=== PATIENT | male | born 1955 | race Caucasian/White ===

== ENCOUNTER → 2018-06-03 11:41 | Outpatient (CLI) | payer OTHER, SELFPAY | PROVIDERS: PCP Family Medicine; Visit Provider Family Medicine | DX: E03.9 Hypothyroidism, unspecified (principal); Z86.39 Personal history of other endocrine, nutritional and metabolic disease | CPT/HCPCS: 36415; 84443 ==

== ENCOUNTER → 2018-07-14 14:18 | Outpatient (CLI) | payer OTHER, SELFPAY ==
--- NOTE | 2018-07-14 14:20 | DI.RAD.S_ITS ---
PROCEDURE: XR WRIST LT MIN 3V INDICATIONS: Left wrist injury TECHNIQUE: 4 views of the wrist were acquired. COMPARISON: [facility], CT, UPPER EXTREM W/O CONTRAST, 07/20/2007, 17:32. FINDINGS: Bones: An old nonunited fracture of the scaphoid is noted. There is moderate to severe radiocarpal joint degeneration. No suspicious bony lesions. Scaphoid view: There is an old nonunited fracture involving the waist of the scaphoid. Increased density in the proximal fracture fragment is noted, consistent with avascular necrosis. The appearance was present on prior CT dated 07/20/2007. Soft tissues: No suspicious soft tissue calcifications. IMPRESSION: 1. Old nonunited fracture of the scaphoid. 2. In the setting of acute trauma, superimposed acute fracture is difficult to exclude. If clinical symptoms persist or clinical suspicion for acute pathology is high, CT or MRI is suggested for further evaluation. Dictated by: Tabatha Domingo M.D. on 07/14/2018 at 17:35 Approved by: Tabatha Domingo M.D. on 07/14/2018 at 17:42
== END ==
PROVIDERS: PCP Family Medicine; Visit Provider Registered Nurse
DX: M25.532 Pain in left wrist (principal); M19.032 Primary osteoarthritis, left wrist; S62.002S Unspecified fracture of navicular [scaphoid] bone of left wrist, sequela
CPT/HCPCS: 73110

== ENCOUNTER → 2018-08-24 10:06 | Outpatient (CLI) | payer OTHER, SELFPAY ==
--- NOTE | 2018-08-24 10:08 | DI.RAD.S_ITS ---
PROCEDURE: XR ELBOW LT MIN 3V INDICATIONS: l wrist pain TECHNIQUE: 3 views of the elbow were acquired. COMPARISON: None. FINDINGS: Bones: No fractures or dislocations. No suspicious bony lesions. Soft tissues: No elbow joint effusion. No suspicious soft tissue calcifications. IMPRESSION: No gross acute elbow fracture or dislocation. No joint effusion. Dictated by: Troy Faulkner M.D. on 08/24/2018 at 10:28 Approved by: Troy Faulkner M.D. on 08/24/2018 at 10:33
--- NOTE | 2018-08-24 10:08 | DI.RAD.S_ITS ---
PROCEDURE: XR WRIST LT MIN 3V INDICATIONS: l wrist pain TECHNIQUE: 3 views of the wrist were acquired. COMPARISON: [facility], CR, XR WRIST LT MIN 3V, 07/14/2018, 14:17. FINDINGS: Bones: Intra-articular fracture of distal radius is seen with minimal displacement at fracture site. There is also an old fracture involving scaphoid with well-corticated margin. Subtle increased sclerotic changes in the proximal scaphoid is seen, concerning for avascular necrosis. Osteoarthritic changes along radial aspect of left wrist is noted. No suspicious bony lesions. Soft tissues: No suspicious soft tissue calcifications. IMPRESSION: 1. Subacute appearing intra-articular fracture of distal radius with minimal displacement at fracture site. 2. Chronic appearing scaphoid waist fracture with signs of nonunion and concern for early avascular necrosis involving proximal portion of scaphoid fragment. Dictated by: rToy Faulkner M.D. on 08/24/2018 at 10:34 Approved by: Troy Faulkner M.D. on 08/24/2018 at 10:35
== END ==
PROVIDERS: PCP Family Medicine; Visit Provider Physician Assistant
DX: S52.572A Other intraarticular fracture of lower end of left radius, initial encounter for closed fracture (principal); M25.532 Pain in left wrist; S62.002K Unspecified fracture of navicular [scaphoid] bone of left wrist, subsequent encounter for fracture with nonunion; M19.032 Primary osteoarthritis, left wrist; X58.XXXA Exposure to other specified factors, initial encounter
CPT/HCPCS: 73080; 73110

== ENCOUNTER → 2019-10-13 08:04 | Outpatient (CLI) | payer OTHER, SELFPAY ==
[2019-10-13 09:18] LABS: Hemoglobin A1C% w Est Avg Glu 5.3 % (4.0-6.0)
[2019-10-13 09:20] LABS: Alanine Aminotransferase 29 IU/L (<50); Albumin 4.7 g/dL (3.5-5.0); Albumin Globulin Ratio 1.6 (1.0-2.8); Alkaline Phosphatase 41 U/L (38-126); Aspartate Aminotransferase 37 IU/L (17-59); BUN Creatinine Ratio 27.2 (6-22); Bilirubin Total 0.7 mg/dL (0.2-1.3); Blood Urea Nitrogen 28 mg/dL (9-20); Calcium 9.4 mg/dL (8.4-10.2); Carbon Dioxide 29 mmol/L (22-32); Chloride 103 mmol/L (98-107); Cholesterol 101 mg/dL (140-199); Estimated Glomerular Filt Rate > 60.0 mL/min (>60); Globulin 2.9 g/dL (1.7-4.1); Glucose 93 mg/dL (80-110); HDL Cholesterol 58 mg/dL (40-60); HEMOLYSIS < 15 (0-50); LDL Cholesterol Calculated 39 mg/dL (<100); Potassium 4.4 mmol/L (3.4-5.1); Sodium 139 mmol/L (137-145); Total Protein 7.6 g/dL (6.3-8.2); Triglycerides 21 mg/dL (35-150)
[2019-10-13 09:26] LABS: Add Manual Diff / Slide Review NO; Basophils Absolute Auto 0 /uL (0-100); Basophils Percent Auto 0.3 % (0-2); Eosinophils Absolute Auto 200 /uL (0-450); Hematocrit 45.2 % (41-53); Hemoglobin 15.7 g/dL (13.5-17.5); Lymphocytes Absolute Auto 1300 /uL (1100-4500); Mean Corpuscular HGB Conc 34.7 % (30-36); Mean Corpuscular Hemoglobin 31.1 PG (26-34); Mean Corpuscular Volume 89.6 fL (80-100); Monocytes Absolute Auto 300 /uL (0-900); Monocytes Percent Auto 7.6 % (3-14); Neutrophils Absolute Auto 2400 /uL (1500-7000); Neutrophils Percent Auto 57.1 % (50-75); Platelet Count 209 X10^3/uL (150-400); Red Blood Cell Count 5.04 X10^6/uL (4.5-5.9); Red Cell Distribution Width 13.2 % (11.6-14.8); White Blood Cell Count 4.1 X10^3/uL (4.5-11.0)
[2019-10-13 10:11] LABS: TSH w/ Reflex to FT4 4.52 uIU/mL (0.47-4.68)
== END ==
PROVIDERS: PCP Family Medicine; Referring Provider Family Medicine; Visit Provider Family Medicine
DX: E03.9 Hypothyroidism, unspecified (principal); I10 Essential (primary) hypertension; N40.0 Benign prostatic hyperplasia without lower urinary tract symptoms
CPT/HCPCS: 36415; 80053; 80061; 83036; 84443; 85025

== ENCOUNTER → 2020-06-02 10:24 | Outpatient (CLI) | payer OTHER, SELFPAY ==
[2020-06-02 11:14] LABS: Hemoglobin A1C% w Est Avg Glu 5.1 % (4.0-6.0)
[2020-06-02 11:15] LABS: Alanine Aminotransferase 27 IU/L (<50); Albumin 4.5 g/dL (3.5-5.0); Albumin Globulin Ratio 1.7 (1.0-2.8); Alkaline Phosphatase 41 U/L (38-126); Aspartate Aminotransferase 37 IU/L (17-59); BUN Creatinine Ratio 22.8 (6-22); Bilirubin Total 0.6 mg/dL (0.2-1.3); Blood Urea Nitrogen 26 mg/dL (9-20); Calcium 9.6 mg/dL (8.4-10.2); Carbon Dioxide 32 mmol/L (22-32); Chloride 104 mmol/L (98-107); Estimated Glomerular Filt Rate > 60.0 mL/min (>60); Globulin 2.6 g/dL (1.7-4.1); Glucose 92 mg/dL (80-110); HEMOLYSIS < 15 (0-50); Potassium 4.4 mmol/L (3.4-5.1); Sodium 137 mmol/L (137-145); Total Protein 7.1 g/dL (6.3-8.2)
[2020-06-02 11:33] LABS: Creatinine Urine Random 56.2 mg/dL
[2020-06-02 11:43] LABS: Prostate Specific Antigen Scrn 5.39 ng/mL (0.1-4.0)
[2020-06-02 11:45] LABS: Microalbumin Urine Random < 0.6 mg/dL (0-1.6)
== END ==
PROVIDERS: PCP Family Medicine; Referring Provider Family Medicine; Visit Provider Family Medicine
DX: I10 Essential (primary) hypertension (principal); N40.0 Benign prostatic hyperplasia without lower urinary tract symptoms
CPT/HCPCS: 36415; 80053; 82043; 82570; 83036; G0103

== ENCOUNTER → 2021-08-13 07:14 | Outpatient (CLI) | payer MEDICARE, OTHER, SELFPAY ==
[2021-08-13 09:01] LABS: Add Manual Diff / Slide Review NO; Basophils Absolute Auto 0 /uL (0-100); Basophils Percent Auto 0.4 % (0-2); Eosinophils Absolute Auto 400 /uL (0-450); Eosinophils Percent Auto 7.1 % (2-4); Hematocrit 42.8 % (41-53); Hemoglobin 14.8 g/dL (13.5-17.5); Lymphocytes Absolute Auto 1100 /uL (1100-4500); Mean Corpuscular HGB Conc 34.7 % (30-36); Mean Corpuscular Hemoglobin 30.5 PG (26-34); Mean Corpuscular Volume 88.1 fL (80-100); Monocytes Absolute Auto 500 /uL (0-900); Monocytes Percent Auto 9.6 % (3-14); Neutrophils Absolute Auto 3200 /uL (1500-7000); Neutrophils Percent Auto 61.9 % (50-75); Platelet Count 248 X10^3/uL (150-400); Red Blood Cell Count 4.86 X10^6/uL (4.5-5.9); White Blood Cell Count 5.2 X10^3/uL (4.5-11.0)
[2021-08-13 09:50] LABS: Alanine Aminotransferase 18 IU/L (<50); Albumin 4.2 g/dL (3.5-5.0); Albumin Globulin Ratio 1.6 (1.0-2.8); Alkaline Phosphatase 42 U/L (38-126); Aspartate Aminotransferase 30 IU/L (17-59); BUN Creatinine Ratio 23.1 (6-22); Bilirubin Total 0.4 mg/dL (0.2-1.3); Blood Urea Nitrogen 25 mg/dL (9-20); Calcium 9.2 mg/dL (8.4-10.2); Carbon Dioxide 30 mmol/L (22-32); Chloride 106 mmol/L (98-107); Cholesterol 91 mg/dL (140-199); Estimated Glomerular Filt Rate > 60.0 mL/min (>60); Globulin 2.6 g/dL (1.7-4.1); Glucose 82 mg/dL (80-110); HDL Cholesterol 43 mg/dL (40-60); HEMOLYSIS < 15 (0-50); LDL Cholesterol Calculated 41 mg/dL (<100); Potassium 4.6 mmol/L (3.4-5.1); Sodium 141 mmol/L (137-145); Total Protein 6.8 g/dL (6.3-8.2); Triglycerides 34 mg/dL (35-150)
[2021-08-13 10:12] LABS: Prostate Specific Antigen Scrn 6.64 ng/mL (0.1-4.0)
== END ==
PROVIDERS: PCP Family Medicine; Referring Provider Family Medicine; Visit Provider Family Medicine
DX: Z00.00 Encounter for general adult medical examination without abnormal findings (principal); Z12.5 Encounter for screening for malignant neoplasm of prostate
CPT/HCPCS: 36415; 80053; 80061; 85025; G0103

== ENCOUNTER → 2022-06-06 12:41 | Outpatient (CLI) | payer MEDICARE, OTHER, SELFPAY ==
[2022-06-06 15:02] LABS: Prostate Specific Antigen 6.14 ng/mL (0.10-4.00)
[2022-06-06 15:03] LABS: Free T4, Direct Thyroxine 1.15 ng/dL (0.78-2.19)
[2022-06-06 15:16] LABS: Thyroid Stimulating Hormone 3.33 uIU/mL (0.47-4.68)
== END ==
PROVIDERS: PCP Family Medicine; Referring Provider Family Medicine; Visit Provider Family Medicine
DX: Z12.5 Encounter for screening for malignant neoplasm of prostate (principal); Z13.29 Encounter for screening for other suspected endocrine disorder; E03.9 Hypothyroidism, unspecified
CPT/HCPCS: 36415; 84153; 84439; 84443; G0103

== ENCOUNTER → 2022-06-26 11:58 | Outpatient (CLI) | payer MEDICARE, OTHER, SELFPAY ==
--- NOTE | 2022-06-26 12:25 | DI.MRI.S_ITS ---
PROCEDURE: MR PELIS WO/W CON INDICATIONS: Abnormal Prostate TECHNIQUE: Coronal HASTE, axial T1 FSE with fat saturation, 3-plane nonbreath-hold T2 FSE. After the administration of contrast, dynamic axial, delayed axial and coronal VIBE or 2-D FLASH with fat saturation through the pelvis. Optional diffusion weighted imaging and ADC may be performed. COMPARISON: None. FINDINGS: Image quality: Diffusion weighted and dynamic contrast enhanced images are diagnostic. Prostate: Gland size is 3.9 x 5.0 x 4.9 cm; ellipsoid gland volume is 50 mL. Lesion 1: Location: Anterior left transition zone, base (series 4, image 12). Size: 1.0 x 1.8 cm. T2W: Partially encapsulated nodule. DWI: Markedly hyperintense. ADC: Markedly hypointense. Enhancement: Positive. Extraprostatic Extension: No. PI-RADS score: 3. Genitourinary system: Trabeculated bladder wall, presumably due to chronic outlet obstruction. Small hydroceles. Bowel and peritoneum: Diverticulosis without evidence of diverticulitis. Nodes and vessels: Mildly suspicious left external iliac chain node measuring 9 mm short axis (21/77). Soft tissues: No inguinal hernias. Bones: Marrow demonstrates normal overall signal, without lesions to suggest metastases. Anterior to the pubic symphysis, there is a 1.7 x 1.8 cm region of rim enhancement (21/140). IMPRESSION: 1. PI-RADS 3 lesion in the anterior left transition zone of the base. Mildly suspicious left external iliac chain node measuring 9 mm short axis. No evidence of extracapsular extension or osseous metastatic disease. 2. Anterior to the pubic symphysis, there is a 1.7 x 1.8 cm region of rim enhancement (21/140). Findings are nonspecific, but given location and appearance, degenerative changes from the pubic symphysis is likely, less likely abscess or soft tissue mass. Attention on follow-up. 3. Small hydroceles. Dictated by: Donovan Carrillo M.D. on 06/26/2022 at 14:15 Approved by: Donovan Carrillo M.D. on 06/26/2022 at 14:32
== END ==
PROVIDERS: PCP Family Medicine; Referring Provider Specialist; Visit Provider Specialist
DX: N40.1 Benign prostatic hyperplasia with lower urinary tract symptoms (principal); N43.3 Hydrocele, unspecified; N42.9 Disorder of prostate, unspecified; N32.89 Other specified disorders of bladder; R39.89 Other symptoms and signs involving the genitourinary system; R97.20 Elevated prostate specific antigen [PSA]; K57.90 Diverticulosis of intestine, part unspecified, without perforation or abscess without bleeding
CPT/HCPCS: 72197; A9579

== ENCOUNTER → 2022-09-10 11:49 | Outpatient (CLI) | payer MEDICARE, OTHER, SELFPAY ==
[2022-09-12 09:48] LABS: PSA Free % 16.9 % (.); PSA, Total 5.2 ng/mL (0.0-4.0)
== END ==
PROVIDERS: PCP Family Medicine; Referring Provider Specialist; Visit Provider Specialist
DX: R97.20 Elevated prostate specific antigen [PSA] (principal)
CPT/HCPCS: 36415; 84153; 84154

== ENCOUNTER → 2023-08-05 09:26 | Outpatient (CLI) | payer MEDICARE, OTHER, SELFPAY ==
[2023-08-05 10:52] LABS: Alanine Aminotransferase 31 IU/L (<50); Albumin 4.1 g/dL (3.5-5.0); Albumin Globulin Ratio 1.5 (1.0-2.8); Alkaline Phosphatase 45 U/L (38-126); Aspartate Aminotransferase 40 IU/L (17-59); BUN Creatinine Ratio 19.5 (6-22); Bilirubin Total 0.8 mg/dL (0.2-1.3); Blood Urea Nitrogen 24 mg/dL (9-20); Calcium 9.1 mg/dL (8.4-10.2); Carbon Dioxide 27 mmol/L (22-32); Chloride 108 mmol/L (98-107); Cholesterol 101 mg/dL (140-199); Estimated Glomerular Filt Rate > 60 mL/min (>60); Globulin 2.8 g/dL (1.7-4.1); Glucose 90 mg/dL (80-110); HDL Cholesterol 65 mg/dL (40-60); HEMOLYSIS 40 (0-50); LDL Cholesterol Calculated 31 mg/dL (<100); Potassium 4.7 mmol/L (3.4-5.1); Sodium 137 mmol/L (137-145); Total Protein 6.9 g/dL (6.3-8.2); Triglycerides 24 mg/dL (35-150)
[2023-08-05 11:27] LABS: TSH w/ Reflex to FT4 3.16 uIU/mL (0.47-4.68)
[2023-08-07 14:43] LABS: PSA Free % 18.1 % (.); PSA, Total 6.4 ng/mL (0.0-4.0)
== END ==
LOC: LAB 09:29
PROVIDERS: PCP Family Medicine; Referring Provider Family Medicine; Visit Provider Family Medicine
DX: E03.9 Hypothyroidism, unspecified (principal); R97.20 Elevated prostate specific antigen [PSA]; I10 Essential (primary) hypertension
CPT/HCPCS: 36415; 80053; 80061; 84153; 84154; 84443

== ENCOUNTER → 2023-10-23 15:46 | Outpatient (CLI) | payer MEDICARE, OTHER, SELFPAY ==
--- NOTE | 2023-10-23 | DI.MRI.S_ITS ---
PROCEDURE: MR PELVIC PROSTATE PROTOCOL INDICATIONS: High prostate specific antigen (PSA) TECHNIQUE: Coronal HASTE, axial T1 FSE with fat saturation, 3-plane nonbreath-hold T2 FSE. After the administration of contrast, dynamic axial, delayed axial and coronal VIBE or 2-D FLASH with fat saturation through the pelvis. Diffusion weighted imaging and ADC was performed. COMPARISON: [facility], MR, MR PELVIS WO/W CON, 06/26/2022, 12:09. FINDINGS: Image quality: Diffusion weighted and dynamic contrast enhanced images are diagnostic. Prostate: Gland size is 3.8 x 5.0 x 4.5 cm; ellipsoid gland volume is 44.5 mL. There is nodular hypertrophy including the median lobe as well as a few extruded BPH nodules left inferior apex and left posterior base. Hypertrophy of the median lobe indenting into bladder. Lesion 1: Location: Left mid transition zone near the base, on axial series five, image 11 and coronal series six, image 12. This lesion has increased in transverse diameter compared to prior.. Size: About 1.6 x 1.5 cm, previously 1.6 x 0.8 cm. T2W signal: Moderately hypointense DWI signal: Moderately hyperintense ADC signal: Mildly intense Enhancement: No Extracapsular extension: No. No neurovascular involvement. PI-RADS score: Three Lesion 2: A small encapsulated nodule demonstrates moderately increased diffusion and hypointense ADC signal, present previously in the right posterior transition zone from mid gland to apex, /16. No size change. Prominent enhancement. No extracapsular extension. PI-RADS score: Three Genitourinary system: Urinary bladder wall is smoothly thickened. Distal ureters are non distended. Small bilateral septated hydroceles. Bowel and peritoneum: No pathologic free pelvic fluid. Extensive sigmoid colon diverticulosis. Inferior colon and small bowel loops are normal in caliber. Nodes and vessels: Two slightly prominent left external iliac chain lymph nodes, measuring 8 mm and 9 mm. Fatty david are maintained. Vasculature is patent. Soft tissues: No inguinal hernias. Bones: Marrow demonstrates normal overall signal, without lesions to suggest metastases. Decreased size and enhancement of the ring-like lesion in soft tissues anterior to the right pubic bone at the symphysis. IMPRESSION: Mild enlargement of left base transition zone PI-RADS three lesion. Stable size of a probably atypical BPH nodule (PI-RADS three) demonstrating restricted diffusion and enhancement in the right mid/apical transition zone. Stable size but increased number of left external iliac chain borderline lymph nodes. Dictated by: Josselin Post M.D. on 10/23/2023 at 23:18 Approved by: Josselin Post M.D. on 10/23/2023 at 23:49
== END ==
PROVIDERS: PCP Family Medicine; Referring Provider Specialist; Visit Provider Specialist
DX: N40.1 Benign prostatic hyperplasia with lower urinary tract symptoms (principal); R97.20 Elevated prostate specific antigen [PSA]; N42.9 Disorder of prostate, unspecified
CPT/HCPCS: 72197; A9579

== ENCOUNTER → 2023-11-05 14:31 | Outpatient (CLI) | payer MEDICARE, OTHER, SELFPAY ==
[2023-11-08 08:12] LABS: PSA Free % 22.4 % (.); PSA, Total 3.7 ng/mL (0.0-4.0)
== END ==
PROVIDERS: PCP Family Medicine; Referring Provider Specialist; Visit Provider Specialist
DX: N40.1 Benign prostatic hyperplasia with lower urinary tract symptoms (principal); R97.20 Elevated prostate specific antigen [PSA]; R33.9 Retention of urine, unspecified
CPT/HCPCS: 36415; 81002; 84153; 84154; 99214

== ENCOUNTER → 2023-11-28 14:01 | Outpatient (CLI) | payer MEDICARE, OTHER, SELFPAY | PROVIDERS: PCP Family Medicine; Referring Provider Specialist; Visit Provider Specialist | DX: R97.20 Elevated prostate specific antigen [PSA] (principal) | CPT/HCPCS: 36415; 84153; 84154 ==

== ENCOUNTER 2023-12-09 10:16 | Day surgery (SDC) | payer MEDICARE, OTHER, SELFPAY ==
[2023-12-09] MEDS: LACTATED RINGERS 1,000 ML 42 ML IV (10:37)
[2023-12-09 10:38] VITALS: BP 132/81; PULSE 67; RESP 16; TEMP 36.7; O2SAT 99
--- NOTE | 2023-12-09 11:10 | PM.HP.1 ---
History of Present Illness History of Present Illness Date Patient Seen: 12/09/23 Time Patient Seen: 11:10 Chief complaint: Colonoscopy Narrative: 68-year-old man here for screening colonoscopy. Last colonoscopy 11 years ago normal. No family history of colon cancer. No abdominal concerns today. [facility] Medical History Erectile dysfunction Insomnia Incomplete bladder emptying Abnormal prostate exam Elevated PSA BPH loc w urin obs/LUTS Male circumcision History of high blood pressure Skin cancer Well adult Plantar warts Fractures Chronic back pain (~1993) Ankle pain (~2017) Tinnitus (~1993) Recurrent sinusitis Hearing loss (~1993) Benign prostatic hyperplasia (~2017) Hepatitis C (~1993) Hypothyroidism (~2017) Hyperthyroidism (~2017) Surgical History H/O vasectomy History of liver biopsy H/O hernia repair H/O nasal septoplasty Anesthesia Strabismus (~04/2011) Status post LASIK surgery (~06/2007) Cataracts, bilateral (~2017) Family History Father No problems noted. Mother Heart disease Social History marital status: number of children: 3 household members: spouse lives independently: Yes education level: master's degree occupational status: other Smoking Status: Former smoker Tobacco: How many years used: 6 second hand exposure: No alcohol intake: current substance use type: does not use Type(s) of exercise: walking frequency: 3-4 times per week Meds Home Medications and Allergies Home Medications Medication Instructions Recorded Confirmed Type tamsulosin 0.4 mg capsule See Rx Instructions .Route 06/16/23 12/09/23 Rx .COMPLEX #90 caps tadalafil 5 mg tablet (Cialis) 5 mg PO DAILY #90 tabs 08/05/23 12/09/23 Rx trazodone 50 mg tablet 50 mg PO BEDTIME PRN sleep #30 tabs 11/04/23 12/09/23 Rx Allergies Allergy/AdvReac Type Severity Reaction Status Date / Time Penicillins [PENICILLINS] Allergy Severe Hives Verified 12/09/23 10:50 Exam Vital Signs (past 8 hours): - 07/23/24 10:38 Temperature 98.1 F Pulse Rate 67 Respiratory Rate 16 Blood Pressure 132/81 Pulse Oximetry 99 Oxygen Delivery Method Room Air Oxygen Delivery Method Room Air Narrative Exam Narrative: General adult man alert oriented no acute distress Chest nonlabored respiration Extremities warm well perfused Assessment & Plan Assessment & Plan narrative: The patient requires colorectal screening and colonoscopy is recommended. Technical details were discussed. Risks, benefits, alternatives explained. Risks including but not limited to myocardial infarction, aspiration, bleeding, pain, missed lesion, incomplete examination, need for further radiographic studies, intestinal injury, and need for major abdominal surgery were discussed. All questions were answered to their satisfaction, and they are in agreement with this plan. Time-Based Coding :: [TOTAL MINUTES] spent with patient and on the chart (including review of chart, obtaining history, exam, reviewing outside data, placing orders, documenting exam and treatment plan, and counseling patient) on [DATE].
[2023-12-09 11:40] VITALS: BP 105/70; PULSE 65; RESP 12; TEMP 36.9; O2SAT 96
[2023-12-09 11:45] VITALS: BP 108/63; PULSE 62; RESP 19; TEMP 36.9; O2SAT 96
--- NOTE | 2023-12-09 11:45 | P.OP.COLON_ITS ---
Operative Date/Time/Diagnoses Date of procedure: 12/09/23 Time of procedure: 11:45 Pre-op diagnosis: Colorectal screening Procedure & Clinicians Study performed: Screening colonoscopy Same procedure as scheduled: Yes Indications: Colorectal screening Surgeon: Hermilo Lujan Procedure Notes Procedure in detail: The history and physical was performed/updated and the patient is ASA class is 2. The procedure was discussed in detail with the patient. Potential risks co mplications including infection, bleeding, missed diagnosis, perforation, need for surgery, and were explained. Their questions were answered and informed consent was obtained. Patient was brought to the procedure room and placed standard monitoring equipment. The patient's vital signs were monitored continuously throughout the entire procedure. Prior to starting time-out was performed. The patient was placed in the left lateral recumbent position. Procedural sedation was administered by anesthesia. Examination began with a thorough inspection of the perianal area there was no evidence of fissures, fistulae, external hemorrhoids or cutaneous malignancy. The colonoscopy scope was then placed into the anal canal and was advanced to the cecum, which was identified by the ileocecal valve, the appendiceal orifice and the confluence of the taenia. The scope was then slowly withdrawn examining colon thoroughly in all directions, irrigating it of any residual stool. The scope was retroflexed within the rectum The patient tolerated the procedure well. They will be discharged once criteria are met. The prep was of good/excellent quality. The withdrawl time was 7 minutes. FINDINGS * Unremarkable colonoscopy. Normal healthy colonic mucosa without mass or polyps. Specimen(s): none sent Impression: Normal colonoscopy Post-procedure Recommendations: Colonoscopy in 10 years Disposition: same day surgery
[2023-12-09 11:49] VITALS: BP 104/68; PULSE 53; RESP 16; TEMP 36.9; O2SAT 97
[2023-12-09 11:54] VITALS: BP 110/69; PULSE 59; RESP 14; TEMP 36.9; O2SAT 97
== END 2023-12-09 12:06 | disposition home or self-care (01) ==
PROVIDERS: PCP Family Medicine; Referring Provider Surgery; Visit Provider Surgery
PROC: 0DJD8ZZ Inspection of Lower Intestinal Tract, Via Natural or Artificial Opening Endoscopic (ICD-10-PCS; CPT 45378; principal; 2023-12-09 11:15)
DX: Z12.11 Encounter for screening for malignant neoplasm of colon (principal)
CPT/HCPCS: G0121; J2704

== ENCOUNTER → 2024-02-18 14:04 | Outpatient (CLI) | payer MEDICARE, OTHER, SELFPAY | PROVIDERS: PCP Family Medicine; Visit Provider Urology | DX: N40.1 Benign prostatic hyperplasia with lower urinary tract symptoms (principal); R33.9 Retention of urine, unspecified | CPT/HCPCS: 87086 ==

== ENCOUNTER 2024-03-01 08:57 | Day surgery (SDC) | payer MEDICARE, OTHER, SELFPAY ==
[2024-02-25 11:53] VITALS: BMI 24.1
[2024-03-01] VITALS (13 sets, daily range): BP systolic 116–142; BP diastolic 57–83; PULSE 46–82; RESP 8–16; TEMP 35.7–36.5; O2SAT 96–100; BMI 23.2
--- NOTE | 2024-03-01 | PATH_ITS ---
[facility] Accession Number: [id number] No. of containers..01 Tissue . 01 Material submitted: . prostate - PROSTATE CHIPS . 01 Diagnosis: PROSTATE CHIPS (4 GRAMS), TRANURETHRAL RESECTION: Benign prostatic hyperplasia. MRV 03/04/2024 1631 Local . 01 Electronically signed: . Sara Powers MD, Pathologist NPI- [id number] . 01 Gross description: . Received in formalin with two patient identifiers and prostate chips, are multiple sweeney, rubbery soft tissue fragments admixed with hemorrhagic material weighing 4 grams and aggregating to 4.2 x 3.1 x 1.2 cm. No lesions are identified, and the specimen is submitted entirely in A1-A4. ([id number]) /MRV 03/03/2024 1715 Local . 01 Pathologist provided ICD-10: N40.0 . 01 CPT . 798068 Specimen Comment: A courtesy copy of this report has been sent to [facility] Pathology Performed at: [address] [address], [place], [place] [id number] MD Miky Rajan MD Phone: [phone]
[2024-03-01] MEDS: ACETAMINOPHEN 325 MG TABLET 975 MG PO (09:20)
[2024-03-01] MEDS: LACTATED RINGERS 1,000 ML 42 ML IV (09:21)
--- NOTE | 2024-03-01 09:26 | SUR.OPER ---
Lithotomy on padded OR bed, head on pillow, arms secured on padded arm boards at <90 degrees abduction. Legs secured in padded yellow fins stirrups.
--- NOTE | 2024-03-01 09:45 | PM.PREOP ---
Pre-operative Note COVID-19 COVID-19 status: Not tested Interval Note History & Physical reviewed/Exam performed by Physician: Yes Changes to H&P: No
--- NOTE | 2024-03-01 11:33 | PM.OP.1 ---
Procedure & Clinicians Procedure: Cystoscopy Aquablation Same procedure as scheduled: Yes Indications: 69 y/o M w/ BPH and bothersome LUTS who was unhappy on Tamsulosin 0.4mg daily and strongly desired surgical intervention via an Aquablation procedure. Surgeon: Wesly Zavaleta Click Yes if Unassisted: Yes Anesthesia Type: General Operative Notes Findings: Trilobar hypertrophy, large intravesical median lobe Closure Type: not applicable Specimen(s): other (Prostate chips) Applied: catheter Estimated Blood Loss (mL): 50 Blood products transfused: none Procedure in detail: After informed consent was obtained, the patient was identified brought to the operating room where he was placed in his supine position on the table.? Once there anesthesia was induced and maintained.? Ensuring an adequate level of anesthesia the patient was transitioned to the lithotomy position where after time-out he was prepped.? After prepping, ensuring an adequate level of anesthesia, administration IV antibiotics and time-out 60 cc of ultrasound gel was instilled within the rectum and the ultrasound probe which had been attached to the TRUS stepper which was attached to the TRUS stepper articulating arm which was secured to the bed was advanced into the rectum under direct vision via the ultrasound.? The ultrasound probe was then aligned and confirmation made that the prostate was centered and aligned in both the sagittal and transverse views.? The bladder neck, verumontanum, central and transitional zones were identified.? With the ultrasound in place and adjusted the patient was then draped in a sterile fashion. With the patient draped the 24 [place] aqua beam handpiece was then inserted through the urethra and advanced into the bladder.? Cystoscopy was then performed and no concerning bladder mass or lesions were noted.? Bilateral ureteral orifices were noted to be orthotopic in nature.? As the cystoscope was advanced the level of the sphincter, verumontanum, bladder neck were all identified via ultrasound and under direct vision.? The aqua beam hand place was then secured to the handpiece articulating arm which had been secured to the bed.? The Aquablation handpiece and TRUS probe were confirmed to be parallel and colinear.? Confirmation was then made that the aqua beam handpiece and nozzle was centered and anterior to the bladder neck. ?The cystoscope was then retracted under direct vision in the sphincter and verumontanum were identified.? The tip of the cystoscope was then placed proximal to the external sphincter.? Compression was applied with the TRUS probe to the prostate.? The alignment of the TRUS probe and aqua beam handpiece was once again confirmed.? Horizontal alignment of the handpiece water jet was then performed.? With these adjustments made, the treatment zones were then planned using real-time ultrasound.? In the largest transverse view of the prostate the depth and radial angles were determined and set again in the transverse view of the prostate.? In the longitudinal and sagittal view the Aquablation nozzle was identified and its position registered with the software and robot.? The treatment contours were then determined and adjusted to reflect the intended margins of resection.? Following our plan confirmation, the Aquablation resection treatment was started.? A 2nd pass was then completed in similar fashion after the 1st pass had been completed.? At this point, the Aqua hand piece was removed from the urethra. The 26Fr resectoscope was then inserted into the urethra and cystoscopy was repeated.? The Elik oliving machine operator was utilized to evacuate the blood clots from the bladder.? The bladder neck was then resected using the bipolar Gyrus loop.? Bilateral ureteral orifices were again identified and noted to be intact at case end.? Hemostasis was obtained and noted to be excellent at case end.? The resectoscope was then removed and a 24Fr Devi 3-way hematuria catheter was inserted through the urethra and into the bladder.? 45cc of sterile water was utilized for balloon insufflation.? Efflux was noted to be clear at case end.? Anesthesia was reversed, he was extubated in the OR and transferred to the PACU in stable condition for recovery. Complications: none Post-operative Condition: stable Disposition: PACU Plan for aftercare: Will re-evaluate in a few hours and consider discharging home with catheter in place versus admitting overnight for observation and continuous bladder irrigation.
--- NOTE | 2024-03-01 14:36 | PC.NURSE ---
Addendum entered by Dawna Mcgowan R.N. 03/02/24 11:34: Patient just voided 225cc of dark brown/red urine, and had a pvr of 331. He is trying to void again now. First two pvr was 0. Original Note: Patients urine in lebron tube is at a grade 2, Color in tube is a light pink. Patient is tolerating his 3-way lebron and NS irrigation. He was up to the [facility] and tried to have a bm, jelly from his rectum and from ultrasound procedure before surgery was present in the toilet but no stool. He ate some lunch, and his throat was sore from the ET tube. He is resting comfortably.
[2024-03-02] MEDS: CALCIUM CARBONATE 500 MG TAB PO (00:47)
--- NOTE | 2024-03-02 07:08 | PC.NURSE ---
Continuous bladder irrigation w/o issues overnight, denies pain, grade I-II (few blood clots noted). Clamped CBI @ 0630, placed catheter plug in port. Ambulated in hallway.
[2024-03-02 08:00] VITALS: BP 130/73; PULSE 51; RESP 16; TEMP 36.3; O2SAT 98
--- NOTE | 2024-03-02 08:03 | PM.PN.1 ---
Subjective Subjective Date Patient Seen: 03/02/24 Time Patient Seen: 07:45 Interval history: 69 y/o M w/ BPH and bothersome LUTS who strongly desired surgical management via an Aquablation procedure.? He is now POD 1 and tolerated the aforementioned procedure without any complications and had an uneventful night in the hospital.? He was tolerating a regular diet without nausea or vomiting and his pain remained well controlled.? His CBI was discontinued this AM and he was able to ambulate 3-4 laps in the hallways without issues.? He is eager to have his catheter removed. Exam Vital Signs (past 8 hours): Oxygen Delivery Method Room Air Oxygen Flow Rate 0 Narrative Exam Narrative: GEN:? Alert and oriented X3.? No acute distress.? Well-nourished. EYES:? PERRLA, EOMI. HENT:? Moist mucus membranes, no scleral icterus, normal neck ROM. RESP:? Unlabored breathing, equal rise and fall of chest bilaterally, no cyanosis appreciated. CV:? No peripheral edema, unremarkable heart rate. ABD:? Soft, non-tender, non-distended, no palpable masses. :? Lebron catheter secured and draining light pink urine without clots. EXT:? No edema, clubbing or cyanosis. SKIN:? No rashes or lesions. NEURO:? No focal neurologic deficits, CN II-XII grossly intact. PSYCH:? Cooperative, appropriate mood and affect. [facility] Medical History Erectile dysfunction Insomnia Incomplete bladder emptying Abnormal prostate exam Elevated PSA BPH loc w urin obs/LUTS Male circumcision History of high blood pressure Skin cancer Well adult Plantar warts Fractures Chronic back pain (~1993) Ankle pain (~2017) Tinnitus (~1993) Recurrent sinusitis Hearing loss (~1993) Benign prostatic hyperplasia (~2017) Hepatitis C (~1993) Hypothyroidism (~2017) Hyperthyroidism (~2017) Surgical History H/O colonoscopy (12/09/23) H/O vasectomy History of liver biopsy H/O hernia repair H/O nasal septoplasty Anesthesia Strabismus (~04/2011) Status post LASIK surgery (~06/2007) Cataracts, bilateral (~2018) Family History Father No problems noted. Mother Heart disease Social History marital status: number of children: 3 household members: spouse lives independently: Yes education level: master's degree occupational status: other Smoking Status: Former smoker Tobacco: How many years used: 6 second hand exposure: No alcohol intake: current substance use type: does not use Type(s) of exercise: walking frequency: 3-4 times per week Assessment & Plan Assessment and plan (1) BPH loc w urin obs/LUTS: Status: Acute Plan: 69 y/o M w/ h/o BPH and bothersome LUTS who strongly desired surgical management via an Aquablation procedure.? He is POD 1 and is recovering as expected.? His lebron catheter was removed this AM. - Will continue to hydrate well - Will contact the nursing team every time that he urinates so that they can record his UOP and his PVR - Will check on him around lunch, should he be adequately emptying his bladder and his urine remains relatively clear will discharge home. Time-Based Coding :: [TOTAL MINUTES] spent with patient and on the chart (including review of chart, obtaining history, exam, reviewing outside data, placing orders, documenting exam and treatment plan, and counseling patient) on [DATE]. Quality VTE Deep Vein Thrombosis/Pulmonary Embolism Present on Admission: No IH PROFEE Charge codes Subsequent inpatient/observation care: 14180
--- NOTE | 2024-03-02 11:57 | PC.NURSE ---
Patient ambulating in halls. Stallings taken out earlier by Dr. Zavaleta. His last urine amount in the urinal was 225, and he bladder scanned for 331cc for PVR. He voided twice prior and both pvrs were 0. He is comfortable and denies pain.
--- NOTE | 2024-03-02 13:26 | CM.DANOTE ---
Initial DCP Assessment Note Pt is a 69 yo male, resident of [place], now POD#1 from urology procedure by Dr Zavaleta PCP: Washington Tubbs Payer: [facility] Reviewed chart, pt discussed in multidisciplinary rounds this morning. Patient lives independently with spouse and has planned for return home w/family to assist throughout recovery. DC order from Dr Zavaleta has been initiated. No barriers identified at this time to patient's safe discharge home w/family to assist; close outpatient f/u recommended. CM team will plan to follow clinical course closely in case any DC needs or concerns arise. SIVAKUMAR [place] Discharge Planning/Care Management CM Discharge Assessment Start: 03/02/24 13:25 Freq: Status: Active Protocol: Document 03/02/24 13:25 GLORIA (Rec: 03/02/24 13:26 GLORIA [id number]) Discharge Planning Assessment Assigned [employer] SIVAKUMAR Veloz DPOA/Assigned Designee Name Malena Rodríguez, spouse Contact Information [phone] Advance Directives? Yes Advance Directives on File No History Provided By Patient,Medical Record Prior Living Arrangements House Household Members spouse Type of transporation used prior to Drives own vehicle admit Independent with ADL's Yes Is patient alert and oriented? Yes Barriers to Discharge No Discharge Plan Home Transportation Arrangement Spouse Referrals Initiated None needed
== END 2024-03-02 13:25 | disposition home or self-care (01) ==
LOC: OR 08:58 → AC 08:59
PROVIDERS: PCP Family Medicine; Referring Provider Urology; Visit Provider Urology
PROC: 0VT08ZZ Resection of Prostate, Via Natural or Artificial Opening Endoscopic (ICD-10-PCS; CPT 0421T; principal; 2024-03-01 10:15)
DX: N40.1 Benign prostatic hyperplasia with lower urinary tract symptoms (principal); R33.9 Retention of urine, unspecified; I10 Essential (primary) hypertension; B19.20 Unspecified viral hepatitis C without hepatic coma; Z87.891 Personal history of nicotine dependence; R97.20 Elevated prostate specific antigen [PSA]
CPT/HCPCS: 0421T; C2596; J0330; J1100; J2405; J2704; J3010

== ENCOUNTER → 2024-04-13 09:29 | Outpatient (CLI) | payer MEDICARE, OTHER, SELFPAY ==
[2024-03-01 09:15] VITALS: BMI 23.2
== END ==
PROVIDERS: PCP Family Medicine; Referring Provider Urology; Visit Provider Urology
DX: N40.1 Benign prostatic hyperplasia with lower urinary tract symptoms (principal)
CPT/HCPCS: 87077; 87086; 87147

== ENCOUNTER → 2024-08-03 12:23 | Outpatient (CLI) | payer MEDICARE, OTHER, SELFPAY ==
[2024-03-01 09:15] VITALS: BMI 23.2
[2024-08-03 14:03] LABS: Prostate Specific Antigen 6.28 ng/mL (0.10-4.00)
== END ==
PROVIDERS: PCP Family Medicine; Referring Provider Urology; Visit Provider Urology
DX: N40.1 Benign prostatic hyperplasia with lower urinary tract symptoms (principal); R33.9 Retention of urine, unspecified
CPT/HCPCS: 36415; 84153

== ENCOUNTER → 2025-02-08 10:45 | Outpatient (CLI) | payer MEDICARE, OTHER, SELFPAY ==
[2024-03-01 09:15] VITALS: BMI 23.2
[2025-02-08 12:09] LABS: Prostate Specific Antigen 6.83 ng/mL (0.10-4.00)
== END ==
PROVIDERS: PCP Family Medicine; Referring Provider Urology; Visit Provider Urology
DX: R97.20 Elevated prostate specific antigen [PSA] (principal); N40.1 Benign prostatic hyperplasia with lower urinary tract symptoms
CPT/HCPCS: 36415; 84153